=== PATIENT | female | born 1995 | race Caucasian/White ===

== ENCOUNTER 2016-09-09 02:00 | Emergency (ER) | payer MEDICAID, OTHER ==
[~2016-09-09] VITALS: Ht 185.4 cm; Wt 110.0 kg
[~2016-09-09 02:00] MED LIST: AMOX500C PO; DEPO400I IM; LORTS PO
[2016-09-09 02:03] VITALS: BP 168/94; PULSE 105; RESP 18; TEMP 99.2; O2SAT 100
[2016-09-09] MEDS ORDERED: SODIUM CHLOR 0.9% 1000 ML INJ 1,000 ML IV ONE (02:30)
[2016-09-09] MEDS ORDERED: ONDANSETRON HCL 4 MG/2 ML VIAL IV PUSH ONE (02:30)
--- NOTE | 2016-09-09 02:35 | PD ---
HPI Chief Complaint: Abdominal Pain Time Seen by Provider: 02:19 Travel History International Travel<30 days: No Contact w/Intl Traveler<30days: No Traveled to known affect area: No History of Present Illness HPI 21yo F with recent elective medical 6 days ago presents to the ED with c/o lower abdominal pain that started around 10pm tonight. Pt states that she took 4 pills (sounds like methotrexate) 6 days ago at [place] and that night, she had passage of the fetus. Pt was about 10 weeks and had ultrasound to confirm intrauterine . States she feels pressure and sharp pain from her pelvis to bilateral lower abdomen. Had NBNB vomiting today. States she had temp of 100.4 prior to arrival but no fever here. Pt states she did not have pain after that day until today. Denies any chest pain , sob. Pt states she had an ultrasound 7 days ago that showed an intrauterine at [facility] prior to the termination of the . PFSH Past Medical History Asthma: Yes (seasonal ) Autoimmune Disease: No Anxiety: No Depression: No Cardiovascular Problems: No Cystic Fibrosis: No Diminished Hearing: No Genitourinary: No Musculoskeletal: No Neurologic: No Psychiatric: No Respiratory: Yes Sleep Apnea: No Tetanus Vaccination: < 5 Years Influenza Vaccination: Yes ?: Not : 1 Para: 0 Past Surgical History Abdominal Surgery: No Cardiac Surgery: No Ear Surgery: No Endocrine Surgery: No Eye Surgery: No Genitourinary Surgery: No Gynecologic Surgery: No Neurologic Surgery: No Oral Surgery: No Thoracic Surgery: No Tonsillectomy: Yes Social History Alcohol Use: No Tobacco Use: No Substance Use: No Allergies-Medications (Allergen,Severity, Reaction): Coded Allergies: No Known Allergies (Unverified , 09/09/16) Reported Meds & Prescriptions Reported Meds & Active Scripts Active No Active Prescriptions or Reported Medications Review of Systems Except as stated in HPI: all other systems reviewed are Neg Physical Exam Narrative GENERAL: 21yo F in mild distress. SKIN: Focused skin assessment warm/dry. HEAD: Atraumatic. Normocephalic. EYES: Pupils equal and round. No scleral icterus. No injection or drainage. CARDIOVASCULAR: Mildly tachycardic in the low 100s. No murmur appreciated. RESPIRATORY: No accessory muscle use. Clear to auscultation. Breath sounds equal bilaterally. GASTROINTESTINAL: Abdomen soft, +Suprapubic ttp > bilateral lower abdominal ttp. PELVIC: Small amount of blood in vaginal vault. Cervical os is closed. No CMT or adnexal tenderness bilaterally. MUSCULOSKELETAL: No obvious deformities. No clubbing. No cyanosis. No edema. NEUROLOGICAL: Awake and alert. No obvious cranial nerve deficits. Motor grossly within normal limits. Normal speech. PSYCHIATRIC: Appropriate mood and affect; insight and judgment normal. Data Data Last Documented VS Vital Signs Date Time Temp Pulse Resp B/P Pulse Ox O2 Delivery O2 Flow Rate FiO2 09/09/16 05:19 16 09/09/16 03:52 86 139/75 99 Room Air 09/09/16 02:03 99.2 Orders Beta Hcg (Quant/Titer) (09/09/16 02:26) Complete Blood Count With Diff (09/09/16 02:26) Basic Metabolic Panel (Bmp) (09/09/16 02:26) Gc And Chlamydia Pcr (09/09/16 02:26) Us Pelvis (Ques Preg/Ectopic) (09/09/16 ) Wet Prep Profile (09/09/16 02:26) Urinalysis - C+S If Indicated (09/09/16 02:26) Prothrombin Time / Inr (Pt) (09/09/16 02:26) Act Partial Throm Time (Ptt) (09/09/16 02:26) Ondansetron Inj (Zofran Inj) (09/09/16 02:30) Sodium Chlor 0.9% 1000 Ml Inj (Ns 1000 M (09/09/16 02:30) Acetaminophen (Tylenol) (09/09/16 04:00) Ct Abd/Pel W Iv Contrast(Rout) (09/09/16 ) Iohexol 350 Inj (Omnipaque 350 Inj) (09/09/16 05:21) Morphine Inj (Morphine Inj) (09/09/16 05:30) Labs Laboratory Tests Test 09/09/16 02:45 White Blood Count 8.4 TH/MM3 Red Blood Count 4.19 MIL/MM3 Hemoglobin 12.2 GM/DL Hematocrit 36.3 % Mean Corpuscular Volume 86.6 FL Mean Corpuscular Hemoglobin 29.1 PG Mean Corpuscular Hemoglobin 33.6 % Concent Red Cell Distribution Width 12.9 % Platelet Count 172 TH/MM3 Mean Platelet Volume 9.4 FL Neutrophils (%) (Auto) 67.3 % Lymphocytes (%) (Auto) 22.4 % Monocytes (%) (Auto) 9.0 % Eosinophils (%) (Auto) 1.0 % Basophils (%) (Auto) 0.3 % Neutrophils # (Auto) 5.7 TH/MM3 Lymphocytes # (Auto) 1.9 TH/MM3 Monocytes # (Auto) 0.8 TH/MM3 Eosinophils # (Auto) 0.1 TH/MM3 Basophils # (Auto) 0.0 TH/MM3 CBC Comment DIFF FINAL Differential Comment Prothrombin Time 10.4 SEC Prothromb Time International 0.9 RATIO Ratio Activated Partial 26.7 SEC Thromboplast Time Urine Color YELLOW Urine Turbidity CLEAR Urine pH 6.5 Urine Specific [place] 1.014 Urine Protein NEG mg/dL Urine Glucose (UA) NEG mg/dL Urine Ketones NEG mg/dL Urine Occult Blood MOD Urine Nitrite NEG Urine Bilirubin NEG Urine Urobilinogen LESS THAN 2.0 MG/DL Urine Leukocyte Esterase NEG Urine RBC 28 /hpf Urine WBC 3 /hpf Urine Squamous Epithelial 1 /hpf Cells Urine Bacteria RARE /hpf Urine Mucus FEW /lpf Microscopic Urinalysis Comment CULT NOT INDICATED Clue Cells (Wet Prep) NONE SEEN Vaginal Trichomonas (Wet Prep) NONE SEEN Vaginal Yeast (Wet Prep) NONE SEEN Sodium Level 142 MEQ/L Potassium Level 3.4 MEQ/L Chloride Level 107 MEQ/L Carbon Dioxide Level 28.5 MEQ/L Anion Gap 7 MEQ/L Blood Urea Nitrogen 10 MG/DL Creatinine 0.59 MG/DL Estimat Glomerular Filtration 129 ML/MIN Rate Random Glucose 100 MG/DL Calcium Level 8.8 MG/DL Human Chorionic Gonadotropin, 1967 [facility]U/ML Quant Chlamydia trachomatis DNA NOT DETECTED (PCR) Neisseria gonorrhoeae DNA NOT DETECTED (PCR) [facility] Medical Decision Making Medical Screen Exam Complete: Yes Emergency Medical Condition: Yes Interpretation(s) Laboratory Tests Test 09/09/16 02:45 White Blood Count 8.4 TH/MM3 (4.0-11.0) Red Blood Count 4.19 MIL/MM3 (4.00-5.30) Hemoglobin 12.2 GM/DL (11.6-15.3) Hematocrit 36.3 % (35.0-46.0) Mean Corpuscular Volume 86.6 FL (80.0-100.0) Mean Corpuscular Hemoglobin 29.1 PG (27.0-34.0) Mean Corpuscular Hemoglobin 33.6 % Concent (32.0-36.0) Red Cell Distribution Width 12.9 % (11.6-17.2) Platelet Count 172 TH/MM3 (150-450) Mean Platelet Volume 9.4 FL (7.0-11.0) Neutrophils (%) (Auto) 67.3 % (16.0-70.0) Lymphocytes (%) (Auto) 22.4 % (9.0-44.0) Monocytes (%) (Auto) 9.0 % (0.0-8.0) Eosinophils (%) (Auto) 1.0 % (0.0-4.0) Basophils (%) (Auto) 0.3 % (0.0-2.0) Neutrophils # (Auto) 5.7 TH/MM3 (1.8-7.7) Lymphocytes # (Auto) 1.9 TH/MM3 (1.0-4.8) Monocytes # (Auto) 0.8 TH/MM3 (0-0.9) Eosinophils # (Auto) 0.1 TH/MM3 (0-0.4) Basophils # (Auto) 0.0 TH/MM3 (0-0.2) CBC Comment DIFF FINAL Differential Comment Prothrombin Time 10.4 SEC (9.8-11.6) Prothromb Time International 0.9 RATIO Ratio Activated Partial 26.7 SEC Thromboplast Time (24.3-30.1) Urine Color YELLOW (YELLW/STRAW) Urine Turbidity CLEAR (CLEAR) Urine pH 6.5 (5.0-8.5) Urine Specific [place] 1.014 (1.002-1.035) Urine Protein NEG mg/dL (NEG-TRACE) Urine Glucose (UA) NEG mg/dL (NEG) Urine Ketones NEG mg/dL (NEG) Urine Occult Blood MOD (NEG) Urine Nitrite NEG (NEG) Urine Bilirubin NEG (NEG) Urine Urobilinogen LESS THAN 2.0 MG/DL (LESS THAN 2.0) Urine Leukocyte Esterase NEG (NEG) Urine RBC 28 /hpf (0-3) Urine WBC 3 /hpf (0-5) Urine Squamous Epithelial 1 /hpf (0-5) Cells Urine Bacteria RARE /hpf (NONE) Urine Mucus FEW /lpf (OCC) Microscopic Urinalysis Comment CULT NOT INDICATED Clue Cells (Wet Prep) NONE SEEN (NONE) Vaginal Trichomonas (Wet Prep) NONE SEEN (NONE) Vaginal Yeast (Wet Prep) NONE SEEN (NONE) Sodium Level 142 MEQ/L (136-145) Potassium Level 3.4 MEQ/L (3.5-5.1) Chloride Level 107 MEQ/L (98-107) Carbon Dioxide Level 28.5 MEQ/L (21.0-32.0) Anion Gap 7 MEQ/L (5-15) Blood Urea Nitrogen 10 MG/DL (7-18) Creatinine 0.59 MG/DL (0.50-1.00) Estimat Glomerular Filtration 129 ML/MIN Rate (>89) Random Glucose 100 MG/DL (74-106) Calcium Level 8.8 MG/DL (8.5-10.1) Human Chorionic Gonadotropin, 1967 MIU/ML Quant (0-5) Chlamydia trachomatis DNA NOT DETECTED (PCR) (NOT DETECT) Neisseria gonorrhoeae DNA NOT DETECTED (PCR) (NOT DETECT) Last Impressions Pelvis Ultrasound 09/09/16 0000 Signed Impressions: Service Date/Time: August 03:38 - CONCLUSION: Normal examination. Sid Mendoza MD Abdomen/Pelvis CT 09/09/16 0000 Signed Impressions: Service Date/Time: August 05:12 - CONCLUSION: Normal examination. The appendix is specifically normal. Minimal free fluid in the cul-de-sac well within normal limits. Sid Mendoza MD Differential Diagnosis Endometritis vs. vs. Cystitis vs. appendicitis vs. colitis Narrative Course 21yo F with recent elective here with lower abdominal pain. Pt is well appearing but tender on exam diffuse in lower abdomen. Pelvic exam was not remarkable. Pt given zofran with relieve of nausea. Labs reviewed, no leukocytosis. K: 3.4, pt can replace orally. bHCG 1966. UA showed moderate blood. Wet prep negative. Pelvic US showed normal exam with no mass in either ovaries and myometrium has homogeneous echotexture without mass. Pt was still with pain on reevaluation so CTa/p was performed. CT showed normal exam. Normal appendix. Morphine was not given because she states the acetaminophen was starting to make her feel better. Pt tolerating PO. Return precautions given. Diagnosis Primary Impression: Abdominal pain Qualified Code: R10.30 - Lower abdominal pain Patient Instructions: General Instructions Departure Forms: Tests/Procedures Additional Instructions: Please follow up with your OBGYN in 1-2 days. Return to the ED if your symptoms worsen. Med/Other Pt SpecificInfo: Prescription(s) given Scripts Acetaminophen (Acetaminophen Extra Strength)500 Mg Tablet1 Tab PO Q6HR #20 Prov:Le Mchugh DO 09/09/16 Disposition: 01 DISCHARGE HOME Condition: Stable Le Mchugh DO September 09, 2016 02:35
[2016-09-09 02:52] LABS: AUTOMATED NEUTROPHIL # 5.7 TH/MM3 (1.8-7.7); BASOPHIL % 0.3 % (0.0-2.0); EOSINOPHIL # 0.1 TH/MM3 (0-0.4); HEMATOCRIT 36.3 % (35.0-46.0); HEMO FLAGS DIFF FINAL; LYMPH % 22.4 % (9.0-44.0); LYMPHOCYTE # 1.9 TH/MM3 (1.0-4.8); MEAN CELL VOLUME 86.6 FL (80.0-100.0); MEAN CORPUSCULAR HEMOGLOBIN 29.1 PG (27.0-34.0); MEAN CORPUSCULAR HGB CONC 33.6 % (32.0-36.0); NEUT % 67.3 % (16.0-70.0); PLATELET COUNT 172 TH/MM3 (150-450); RED BLOOD COUNT 4.19 MIL/MM3 (4.00-5.30); RED CELL DISTRIBUTION WIDTH 12.9 % (11.6-17.2); WHITE BLOOD COUNT 8.4 TH/MM3 (4.0-11.0)
[2016-09-09 03:03] LABS: BACTERIA, URINE RARE /hpf; BLOOD, URINE MOD (NEG); COMMENT (UR) CULT NOT INDICATED; CULTURE IF INDICATED CULT NOT INDICATED; GLUCOSE,URINE NEG (NEG); KETONE, URINE NEG (NEG); MUCUS URINE FEW /lpf (OCC); NITRITE,URINE NEG (NEG); PH, URINE 6.5 (5.0-8.5); SQUAMOUS EPITHELIAL CELL URINE 1 /hpf (0-5); URINE COLOR YELLOW (YELLW/STRAW)
[2016-09-09 03:11] LABS: APTT (PATIENT) 26.7 SEC (24.3-30.1); INTERNATIONAL NORMALIZED RATIO 0.9 RATIO; PROTHROMBIN TIME - PATIENT 10.4 SEC (9.8-11.6)
[2016-09-09 03:18] LABS: BICARBONATE 28.5 MEQ/L (21.0-32.0); POTASSIUM 3.4 MEQ/L (3.5-5.1)
[2016-09-09 03:52] VITALS: BP 139/75; PULSE 86; RESP 18; O2SAT 99
[2016-09-09] MEDS ORDERED: ACETAMINOPHEN 325 MG TAB PO ONE (04:00)
--- NOTE | 2016-09-09 04:47 | RADRPT ---
EXAM DATE/TIME: 09/09/2016 03:38 [facility] COMPARISON: No previous studies available for comparison. INDICATIONS : Pelvic pain and bleeding post . LAB(S): Beta-hC MEDICAL HISTORY : . Asthma. Elective 6 days ago. SURGICAL HISTORY : Tonsillectomy. ENCOUNTER: Initial ACUITY: 1 day PAIN SCORE: 6/10 LOCATION: Bilateral pelvis MEASUREMENTS: UTERUS: 9.2 x 5.4 x 4.6 cm ENDOMETRIAL STRIPE: 12 mm RIGHT OVARY: 3.6 x 2.4 x 1.7 cm LEFT OVARY: 4.1 x 2.9 x 2.9 cm FREE FLUID: No CROWN RUMP LENGTH: Non visualized. = WKS DAYS FHR: Non visualized. BPM FINDINGS: UTERUS: The myometrium has homogeneous echotexture without mass. RIGHT OVARY: Ovary contains no mass or significant cystic lesion. LEFT OVARY: Ovary contains no mass or significant cystic lesion. MISCELLANEOUS: No free fluid. CONCLUSION: Normal examination. Sid Mendoza MD on September 09, 2016 at 4:45 Board Certified Radiologist. This report was verified electronically.
[2016-09-09 05:19] VITALS: RESP 16
[2016-09-09] MEDS ORDERED: IOHEXOL 350 MG/ML 10 ML VIAL (for RAD DIAG) IV ONE (05:21)
[2016-09-09 05:28] LABS: CHLAMYDIA PCR NOT DETECTED (NOT DETECT); NEISSERIA PCR NOT DETECTED (NOT DETECT)
[2016-09-09] MEDS ORDERED: MORPHINE SULFATE 4 MG/ML INJ IV PUSH ONE (05:30)
--- NOTE | 2016-09-09 05:48 | RADRPT ---
EXAM DATE/TIME: 09/09/2016 05:12 [facility] COMPARISON: No previous studies available for comparison. INDICATIONS : Diffuse low abdomen pain. Recent . IV CONTRAST: 95 cc Omnipaque 350 (iohexol) IV ORAL CONTRAST: No oral contrast ingested. RADIATION DOSE: 24.42 CTDIvol (mGy) MEDICAL HISTORY : None SURGICAL HISTORY : None. ENCOUNTER: Initial ACUITY: 1 day PAIN SCALE: 9/10 LOCATION: Bilateral low abdomen TECHNIQUE: Volumetric scanning of the abdomen and pelvis was performed. Using automated exposure control and ad justment of the mA and/or kV according to patient size, radiation dose was kept as low as reasonably achievable to obtain optimal diagnostic quality images. FINDINGS: LOWER LUNGS: The visualized lower lungs are clear. LIVER: Homogeneous density without lesion. There is no dilation of the biliary tree. No calcified gallston es. SPLEEN: Normal size without lesion. PANCREAS: Within normal limits. KIDNEYS: Normal in size and shape. There is no mass, stone or hydronephrosis. ADRENAL GLANDS: Within normal limits. VASCULAR: There is no aortic aneurysm. BOWEL/MESENTERY: The stomach, small bowel, and colon demonstrate no acute abnormality. There is no free intraperitone al air or fluid. ABDOMINAL WALL: Within normal limits. RETROPERITONEUM: There is no lymphadenopathy. BLADDER: No wall thickening or mass. REPRODUCTIVE: Within normal limits. INGUINAL: There is no lymphadenopathy or hernia. MUSCULOSKELETAL: Within normal limits for patient age. CONCLUSION: Normal examination. The appendix is specifically normal. Minimal free fluid in the cul-de-sac well wi thin normal limits. Sid Mendoza MD on September 09, 2016 at 5:46 Board Certified Radiologist. This report was verified electronically.
[2016-09-09] MEDS ORDERED: ACET-898 PO (06:11)
== END 2016-09-09 06:18 | disposition home or self-care (01) ==
LOC: NEPE 02:00
DX: O04.89 (Induced) termination of pregnancy with other complications (principal); R10.30 Lower abdominal pain, unspecified
CPT/HCPCS: 74177; 76700; 80048; 81001; 84702; 85025; 85610; 85730; 87210; 87491; 87591; 96361; 96374; 99285; J2405; J7030; Q9967